=== PATIENT | male | born 1965 | race African-American/Black ===

== ENCOUNTER 2023-09-08 09:51 | Day surgery (SDC) | payer OTHER ==
[2023-09-07 11:36] VITALS: BMI 27.1
[2023-09-08] MEDS ORDERED: KETAMINE 100 MG/ML (5ML VIAL) ONE (12:07)
[2023-09-08] MEDS ORDERED: Midazolam HCl 2 mg/2 ml Vial ONE (12:09)
[2023-09-08] MEDS ORDERED: PROPOFOL 20 ML ONE ×2 (12:09→12:35)
[2023-09-08] MEDS ORDERED: Lidocaine 1% PF 5 ML VIAL ONE (12:09)
[2023-09-08] MEDS ORDERED: Lidocaine 2% MPF 10 ML AMP (For Epidural Use) ONE (12:28)
== END 2023-09-08 13:45 | disposition home or self-care (01) ==
LOC: CSHSDC 09:51
PROVIDERS: ATTEND Internal Medicine Gastroenterology
PROC: 0DBH8ZZ Excision of Cecum, Via Natural or Artificial Opening Endoscopic (ICD-10-PCS; principal; 2023-09-08)
PROC: 0DB68ZX Excision of Stomach, Via Natural or Artificial Opening Endoscopic, Diagnostic (ICD-10-PCS; principal; 2023-09-08)
DX: K29.50 Unspecified chronic gastritis without bleeding (principal); K29.90 Gastroduodenitis, unspecified, without bleeding; K44.9 Diaphragmatic hernia without obstruction or gangrene; K64.8 Other hemorrhoids; K57.30 Diverticulosis of large intestine without perforation or abscess without bleeding; D50.9 Iron deficiency anemia, unspecified; I10 Essential (primary) hypertension; E11.9 Type 2 diabetes mellitus without complications; K21.9 Gastro-esophageal reflux disease without esophagitis; Z79.4 Long term (current) use of insulin; Z79.899 Other long term (current) drug therapy
CPT/HCPCS: 88305; 88342; J2250; J2704